=== PATIENT | male | born 1965 | race Caucasian/White ===

== ENCOUNTER 2021-01-22 08:57 | Emergency (ER) | payer MEDICAID ==
[~2021-01-22] VITALS: Ht 154.9 cm; Wt 79.0 kg
[2021-01-22] MEDS ORDERED: KETOROLAC 60MG/2ML VIAL IM ONE (09:30)
[2021-01-22 09:34] VITALS: BP 110/65
[2021-01-22] MEDS ORDERED: NAPR-681 MT (09:35)
== END 2021-01-22 10:09 | disposition home or self-care (01) ==
LOC: ER 09:09
DX: G89.29 Other chronic pain (principal); M54.5 Low back pain; X50.0XXA Overexertion from strenuous movement or load, initial encounter; X50.9XXA Other and unspecified overexertion or strenuous movements or postures, initial encounter; Y93.89 Activity, other specified; Y92.89 Other specified places as the place of occurrence of the external cause; Y99.8 Other external cause status
CPT/HCPCS: 96372; 99283; J1885; Z7610